=== PATIENT | female | born 1955 | race Caucasian/White ===

== ENCOUNTER → 2019-01-18 | Day surgery (SDC) | payer MEDICARE ==
[~2019-01-18] MED LIST: ATOR40TA59 PO; IV RINGERS,LACTATED 1000ML 1,000 ML IV ONE; METF500T16 PO; METO25TA4 PO; PROPOFOL 40 ML IV ONE; TERB250T11 PO
[2019-01-18 13:58] VITALS: BP 91/51
--- NOTE | 2019-01-19 05:05 | CONS ---
DATE OF CONSULTATION: 01/18/2019 REASON FOR CONSULTATION: Positive Cologuard. REFERRING PHYSICIAN: Jeremy Henley MD HISTORY OF PRESENT ILLNESS: A 63-year-old female with past medical history significant for diabetes, hyperlipidemia, status post tubal ligation, weight loss surgery, is seen with positive Cologuard. Bowel habits are regular without diarrhea or constipation. There has been no melena and/or hematochezia. Weight and appetite are stable. Family history is unrevealing for colon cancer. She is here today for examination. PAST MEDICAL HISTORY: Diabetes, hypertension, hyperlipidemia. ALLERGIES: None. MEDICATIONS: Include atorvastatin, metformin, metoprolol and ____. FAMILY AND SOCIAL HISTORY: Significant for diabetes with multiple family members as well as high blood pressure with her mother and breast cancer with her sister. PAST SURGICAL HISTORY: Tubal ligation and gastric bypass surgery. REVIEW OF SYSTEMS: HEENT: There is no decrease in hearing or visual acuity issues. CARDIAC: History of hypertension. PULMONARY: No shortness breath, productive cough or asthma. RENAL: No dysuria, frequency or hematuria. MUSCULOSKELETAL: Osteoarthrosis. ENDOCRINE: Diabetes and hyperlipidemia. GASTROINTESTINAL: See history of present illness. HEMATOLOGIC: No bleeding, bruising or coagulopathy. PSYCHIATRIC: No mood swings, depression or insomnia. NEUROLOGIC: No stroke, migraine or neuropathy. PHYSICAL EXAMINATION: GENERAL: Reveals a well-nourished, well-developed female, alert, cooperative, in no acute distress. VITAL SIGNS: Temperature 97, pulse 62, respirations 20. HEENT: Normocephalic, atraumatic head. Pupils and extraocular muscles are not tested. Sclerae are anicteric. NECK: Supple. LUNGS: Clear. CARDIOVASCULAR: Reveals an S1, S2, without S3, S4 or appreciable murmur. ABDOMEN: Soft abdomen, normal bowel sounds, without appreciable hepatosplenomegaly. EXTREMITIES: Reveal no cyanosis, clubbing or edema. IMPRESSION: Positive Cologuard test. Colonoscopy is indicated. Differential includes polyps, malignancy, arteriovenous malformations or false positive. Risks and benefits have been discussed including risk of perforation and is willing to proceed. I would like to thank Dr. Henley for allowing us to consult and participate in the patient's care. MANDY MADERA MD DR: JOSE DE JESUS/umberto JOB#: [id number] / [id number] JEREMY Newby MD
--- NOTE | 2019-01-22 08:06 | PATHOLOGY ---
[facility] Accession Number: [id number] . 01 Material submitted: . cecum - CECAL POLYP . 01 Clinical history: . Positive cologuard . 02 Diagnosis: Colon biopsies, cecal polyp: - Tubular adenoma. (JPM:zoey; 01/19/2019) QMS/01/19/2019 . 02 Comment: There is no high grade dysplasia or evidence of malignancy. . 02 Electronically signed: . Lawrence Leonard MD, Pathologist NPI- [id number] . 01 Gross description: . Received in formalin labeled "Allison, Jennifer, cecal polyp," are 2 segments of chavarria soft tissue measuring 1.1 x 0.5 x 0.6 cm in aggregate dimensions and ranging from 0.5 to 0.6 cm in maximum dimension. The specimen is submitted entirely in cassette A1. (TSD; 01/18/2019) TOB/TOB . 02 Pathologist provided ICD-10: D12.0 . 02 CPT . 188149 Specimen Comment: A courtesy copy of this report has been sent to Specimen Comment: [phone], . Specimen Comment: Report sent to / DR ROSSI Performed at: 01 [facility] [address], [place], [place] [id number] MD Kemal Jimenez MD Phone: [phone] Performed at: 02 [facility] [address], [place] [id number] MD Lawrence Leonard MD Phone: [phone]
== END ==
LOC: ENDOS 12:00
PROVIDERS: ATTEND Internal Medicine Gastroenterology
DX: D12.0 Benign neoplasm of cecum (principal); K64.0 First degree hemorrhoids; I10 Essential (primary) hypertension; E11.9 Type 2 diabetes mellitus without complications; E78.5 Hyperlipidemia, unspecified; Z79.84 Long term (current) use of oral hypoglycemic drugs; Z98.890 Other specified postprocedural states; Z98.51 Tubal ligation status; Z98.84 Bariatric surgery status
CPT/HCPCS: 45385; 88305; J2704; 45380